=== PATIENT | male | born 1970 | race American Indian/Alaskan Native ===

== ENCOUNTER 2018-04-13 15:41 | Outpatient (CLI) | payer OTHER ==
--- NOTE | 2018-04-13 22:44 | XRay Report ---
FINAL REPORT EXAM: XR KNEE BILAT 1-2V HISTORY: DISABILITY EXAM TECHNIQUE: Frontal and lateral views of right and left knees. PRIORS: None. FINDINGS: No apparent fracture or dislocation. Joint spaces maintained. Mild marginal spurring in the left medial and bilateral patellofemoral joint spaces, left greater than right. Soft tissues grossly unremarkable. IMPRESSION: 1. No acute osseous abnormality. 2. Mild degenerative changes.
== END 2018-04-13 15:42 | disposition home or self-care (01) ==
LOC: XRAY 15:41
PROVIDERS: ATTEND Internal Medicine
DX: Z02.71 Encounter for disability determination (principal); M17.0 Bilateral primary osteoarthritis of knee